=== PATIENT | female | born 1975 | race Caucasian/White ===

== ENCOUNTER → 2017-06-04 12:41 | Outpatient (CLI) | payer OTHER | END | disposition home or self-care (01) | LOC: LAB 12:41 | DX: J45.41 Moderate persistent asthma with (acute) exacerbation (principal) ==

== ENCOUNTER → 2017-06-04 12:43 | Outpatient (CLI) | payer OTHER | END | disposition home or self-care (01) | LOC: RAD 12:43 | DX: J45.41 Moderate persistent asthma with (acute) exacerbation (principal) ==

== ENCOUNTER 2018-05-14 09:29 | Day surgery (SDC) | payer OTHER | END 2018-05-14 17:10 | disposition home or self-care (01) | LOC: CIR.AMB 09:29 | DX: N84.0 Polyp of corpus uteri (principal) ==

== ENCOUNTER → 2019-01-22 10:49 | Outpatient (CLI) | payer OTHER | END | disposition home or self-care (01) | LOC: LAB 10:49 | DX: N91.1 Secondary amenorrhea (principal) ==

== ENCOUNTER 2019-02-16 10:15 | Inpatient (IN) | payer OTHER ==
[~2019-02-16] VITALS: Ht 157.5 cm; Wt 72.6 kg
[2019-02-16] MEDS ORDERED: IRON325 MG PO (10:41)
== END 2019-02-23 10:33 | disposition home or self-care (01) | DRG 743 ==
LOC: SURH 02-20 07:00 → SURG-SUITE 02-20 13:11 → O/R 02-20 13:11 → SURG-SUITE 02-20 16:42
PROVIDERS: ADMIT Obstetrics & Gynecology
PROC: 0UT10ZZ Resection of Left Ovary, Open Approach (ICD-10-PCS; 2019-02-20)
PROC: 0UT90ZL Resection of Uterus, Supracervical, Open Approach (ICD-10-PCS; principal; 2019-02-20 07:00)
PROC: 0UT70ZZ Resection of Bilateral Fallopian Tubes, Open Approach (ICD-10-PCS; 2019-02-20 07:00)
DX: D25.1 Intramural leiomyoma of uterus (principal); N83.02 Follicular cyst of left ovary; N92.0 Excessive and frequent menstruation with regular cycle; N83.8 Other noninflammatory disorders of ovary, fallopian tube and broad ligament

== ENCOUNTER 2019-03-02 09:42 | Outpatient (CLI) | payer OTHER ==
[~2019-03-02 09:42] MED LIST: IRON325 MG PO
== END 2019-03-02 09:48 | disposition home or self-care (01) ==
LOC: LAB 09:42
DX: N91.1 Secondary amenorrhea (principal)

== ENCOUNTER 2020-11-15 11:09 | Outpatient (CLI) | payer OTHER | END 2020-11-15 11:22 | disposition home or self-care (01) | LOC: RAD 11:09 | PROVIDERS: ATTEND Psychiatry & Neurology Neurology | DX: G44.219 Episodic tension-type headache, not intractable (principal) | CPT/HCPCS: 70551 ==

== ENCOUNTER 2020-12-08 15:27 | Outpatient (CLI) | payer OTHER | END 2020-12-08 15:37 | disposition home or self-care (01) | LOC: MRI 15:27 | PROVIDERS: ATTEND Physical Medicine & Rehabilitation Pain Medicine | DX: M54.2 Cervicalgia (principal) | CPT/HCPCS: 72141 ==

== ENCOUNTER 2022-02-27 10:50 | Outpatient (CLI) | payer OTHER | END 2022-02-27 11:01 | disposition home or self-care (01) | LOC: SONOGRAMA 10:50 | PROVIDERS: ATTEND Surgery | DX: N60.11 Diffuse cystic mastopathy of right breast (principal); N60.12 Diffuse cystic mastopathy of left breast ==